=== PATIENT | male | born 1970 | race African-American/Black ===

== ENCOUNTER 2016-05-07 15:59 | Emergency (ER) | payer OTHER, MEDICAID ==
[2016-05-07 16:06] VITALS: BP 140/104; PULSE 82; RESP 16; TEMP 97.9; O2SAT 97
--- NOTE | 2016-05-07 17:00 | EDPHY ---
H & P Stated Complaint: SEEN IN [facility] 2 DAYS AGO FOR FX L ANKLE/WANTS RECHECK Time Seen by Provider: 05/07/16 16:26 HPI/ROS: CHIEF COMPLAINT: Requesting repair of splint HISTORY OF PRESENT ILLNESS: The gentleman presents to the emergency department requesting repair of his splint. The patient reportedly was seen at [facility] several days ago where he was diagnosed with a distal fibular fracture. The patient was placed in a plaster splint which has deteriorated over the past day. The patient does not have crutches. He reportedly is scheduled to follow up with Orthopedic surgery in [place]. The patient denies acute numbness or weakness. He denies additional complaints. REVIEW OF SYSTEMS: A comprehensive 10 point review of systems is otherwise negative aside from elements mentioned in the history of present illness. Source: Patient Exam Limitations: No limitations - Personal History Current Tetanus/Diphtheria Vaccine: Yes - Medical/Surgical History Hx Asthma: No Hx Chronic Respiratory Disease: No Hx Diabetes: No Hx Cardiac Disease: No Hx Renal Disease: No Hx Cirrhosis: No Hx Alcoholism: Yes Hx HIV/AIDS: No Hx Splenectomy or Spleen Trauma: No Other PMH: denies - Social History Smoking Status: Light smoker - Physical Exam Exam: General appearance: alert no distress Left ankle: There is swelling and tenderness over the lateral malleolus. Ankle joint is stable and there is no tenderness over the Achilles tendon. The foot is nontender without swelling. Neurologic exam: The patient has normal sensation and motor function distal to the injury. Vascular exam: Normal pulses and capillary refill in the foot DIFFERENTIAL DIAGNOSIS: After history and physical exam differential diagnosis was considered for ankle injury including sprain, fracture, dislocation and soft tissue injury. Constitutional: Initial Vital Signs Temperature (C) 36.6 C 05/07/16 16:02 Heart Rate 82 05/07/16 16:02 Respiratory Rate 16 05/07/16 16:02 Blood Pressure 140/104 H 05/07/16 16:02 O2 Sat (%) 97 05/07/16 16:02 O2 Delivery Mode Room Air Allergies/Adverse Reactions: No Known Allergies Allergy (Verified 05/07/16 16:01) Home Medications: Medication Instructions Recorded Hydrocodon-Acetaminophen 5-325 05/07/16 Hydrocodone/APAP 5/325 [Berlin 1 - 2 each PO Q6 PRN #20 tab 05/07/16 5/325] Medical Decision Making ED Course/Re-evaluation: Was able to review the x-ray report from [facility] reports a distal fibular fracture without evidence of the medial or posterior malleolus. The patient is noted not to have evidence of significant deformity in the emergency department. He is neurologically intact. The patient will be placed in a Garza boot and given crutches. The patient is told to follow up as scheduled with Orthopedic surgery at [facility]. He is also given the contact number of our on-call orthopedic surgeon. Departure - Departure Disposition: Home, Routine, Self-Care Clinical Impression: Fracture of distal fibula Condition: Good Instructions: Ankle Fracture (ED) Additional Instructions: 1. Garza boot and crutches. 2. Please follow up with Orthopedic surgery as referred from the [facility] or our on-call orthopedic surgeon Dr. Gutierrez. 3. Berlin as needed for pain Referrals: Keven Gutierrez MD [Medical Doctor] - As per Instructions Prescriptions: Hydrocodone/APAP 5/325 [Berlin 5/325] 1 - 2 each PO Q6 PRN #20 tab PRN Reason: for pain
== END 2016-05-07 17:15 | disposition home or self-care (01) ==
DX: S82.832A Other fracture of upper and lower end of left fibula, initial encounter for closed fracture (principal); F17.200 Nicotine dependence, unspecified, uncomplicated; X58.XXXA Exposure to other specified factors, initial encounter
CPT/HCPCS: L4386